=== PATIENT | female | born 1960 | race Two or more races ===

== ENCOUNTER 2017-05-14 08:12 | Outpatient (CLI) | payer OTHER | END 2017-05-14 17:00 | disposition home or self-care (01) | LOC: MAMO-SONO 08:12 | DX: Z12.31 Encounter for screening mammogram for malignant neoplasm of breast (principal); N60.21 Fibroadenosis of right breast; N60.22 Fibroadenosis of left breast ==

== ENCOUNTER 2018-05-30 12:34 | Outpatient (CLI) | payer OTHER | END 2018-05-30 12:37 | disposition home or self-care (01) | LOC: MAMO-SONO 12:34 | DX: N60.21 Fibroadenosis of right breast (principal); N60.22 Fibroadenosis of left breast; Z12.31 Encounter for screening mammogram for malignant neoplasm of breast ==

== ENCOUNTER 2019-10-23 07:39 | Outpatient (CLI) | payer OTHER | END 2019-10-23 07:49 | disposition home or self-care (01) | LOC: MAMO-SONO 07:39 | PROVIDERS: ATTEND Specialist | DX: Z12.31 Encounter for screening mammogram for malignant neoplasm of breast (principal); N60.11 Diffuse cystic mastopathy of right breast; N60.12 Diffuse cystic mastopathy of left breast; N60.21 Fibroadenosis of right breast; N60.22 Fibroadenosis of left breast ==

== ENCOUNTER 2021-08-16 12:20 | Outpatient (CLI) | payer OTHER | END 2021-08-16 12:22 | disposition home or self-care (01) | LOC: MAMO-SONO 12:20 | PROVIDERS: ATTEND Specialist | DX: N60.21 Fibroadenosis of right breast (principal); N60.22 Fibroadenosis of left breast ==